=== PATIENT | male | born 1980 | race Caucasian/White ===

== ENCOUNTER 2019-01-08 07:57 | Inpatient (IN) | payer BC ==
[~2019-01-08] VITALS: Ht 180.3 cm; Wt 73.0 kg
[2019-01-08 08:52] VITALS: Ht 180.3 cm; Wt 73.0 kg
[2019-01-08 10:20] LABS: UA SPECIFIC GRAVITY >=1.030 (1.005-1.035); microscopic required? YES; urine erythrocyte 2+ (NEGATIVE)
[2019-01-08 10:28] LABS: AMPHETAMINE QUAL UR NONE DETECTED (See below)
[2019-01-08 11:06] LABS: BASOPHIL % 0 % (0-2); PLATELET COUNT 250 x10^3mcL (130-400); RED CELL DISTRIBUTION WIDTH 12.9 % (11.5-14.5)
[2019-01-08 11:15] LABS: CARBON DIOXIDE 23.3 mmol/L (21-32); CHLORIDE SERUM 106 mmol/L (98-107); CREATININE SERUM 0.9 mg/dL (0.7-1.3); GFR1 > 60 mL/min; GLUCOSE SERUM 101 mg/dL (74-106); POTASSIUM SERUM 3.6 mmol/L (3.5-5.1); SODIUM SERUM 140 mmol/L (136-145)
[2019-01-08 11:24] LABS: ALKALINE PHOSPHATASE 83 U/L (46-116); ALT/SGPT 31 U/L (16-63); AMYLASE 61 U/L (25-115); AST/SGOT 44 U/L (15-37); BILIRUBIN TOTAL 0.2 mg/dL (0.20-1.00); HDL CHOLESTEROL 54 mg/dL (40-60); LIPASE 82 IU/L (73-393); MAGNESIUM 2.5 mg/dL (1.8-2.4); T4(THYROXINE) 8.3 ug/dL (4.7-13.3); TOTAL PROTEIN, SERUM 6.4 g/dL (6.4-8.2)
[2019-01-08 11:29] LABS: ALBUMIN 3.3 g/dL (3.4-5.0); CHOLESTEROL 133 mg/dL (<200)
[2019-01-08 17:58] VITALS: BP 121/62
[2019-01-08 20:00] VITALS: BP 124/81
[2019-01-09 00:06] VITALS: BP 127/69
[2019-01-09 04:00] VITALS: BP 126/63
[2019-01-09 05:33] LABS: BASOPHIL % 0.2 % (0-2); PLATELET COUNT 267 x10^3mcL (130-400); RED CELL DISTRIBUTION WIDTH 13.1 % (11.5-14.5)
[2019-01-09 05:46] LABS: CALCIUM 9.2 mg/dL (8.5-10.1); CARBON DIOXIDE 24.9 mmol/L (21-32); CHLORIDE SERUM 105 mmol/L (98-107); CREATININE SERUM 0.8 mg/dL (0.7-1.3); GFR1 > 60 mL/min; GLUCOSE SERUM 87 mg/dL (74-106); MAGNESIUM 2.1 mg/dL (1.8-2.4); PHOSPHOROUS 3.6 mg/dL (2.5-4.9); POTASSIUM SERUM 3.8 mmol/L (3.5-5.1); SODIUM SERUM 141 mmol/L (136-145)
[2019-01-09 08:08] LABS: ALBUMIN 3.4 g/dL (3.4-5.0); BILIRUBIN DIRECT 0.12 mg/dL (0.0-0.2); BILIRUBIN TOTAL 0.4 mg/dL (0.20-1.00); TOTAL PROTEIN, SERUM 6.8 g/dL (6.4-8.2)
[2019-01-09 08:09] VITALS: BP 149/70
== END 2019-01-09 10:45 | disposition left against medical advice (07) | DRG 100 ==
LOC: ED 07:57 → IC 13:07 → DU 13:07 → EDBEDREQSVC 13:29 → IC 14:00
PROVIDERS: Emergency Medicine; General Practice; ADMIT Internal Medicine
DX: R56.9 Unspecified convulsions (principal); G92 Toxic encephalopathy; M62.82 Rhabdomyolysis; E44.1 Mild protein-calorie malnutrition; Z53.21 Procedure and treatment not carried out due to patient leaving prior to being seen by health care provider; D72.829 Elevated white blood cell count, unspecified; R74.0 Nonspecific elevation of levels of transaminase and lactic acid dehydrogenase [LDH]; D64.9 Anemia, unspecified; R45.1 Restlessness and agitation; F32.9 Major depressive disorder, single episode, unspecified; F12.10 Cannabis abuse, uncomplicated; E83.41 Hypermagnesemia; E83.51 Hypocalcemia; E83.39 Other disorders of phosphorus metabolism; Z83.3 Family history of diabetes mellitus; Z68.25 Body mass index [BMI] 25.0-25.9, adult; Z79.899 Other long term (current) drug therapy
CPT/HCPCS: 82962; 83880; 87804; C9113; G0480; J1200; J1630; J2060; J2543; J3490; J7030